=== PATIENT | female | born 2000 | race African-American/Black ===

== ENCOUNTER 2018-03-02 17:19 | Emergency (ER) | payer SELFPAY ==
[2018-03-02 19:12] LABS: Bilirubin Small (Negative); Blood, Urine Small (Negative); Clarity CLEAR (Clear); Glucose, Urine (Dipstick) Negative (Negative); Leukocyte Negative (Negative); Nitrite Negative (Negative); Protein, Urine (Dipstick) 100 mg/dL (Neg-Trace); Specific Gravity, Urine 1.029 (1.002-1.036)
[2018-03-02 19:20] LABS: Bacteria/HPF None Seen HPF (None Seen)
[2018-03-02] MEDS ORDERED: Ondansetron ODT 4 MG TAB ONE ×2 (19:24→19:45)
[2018-03-02 19:25] LABS: Hyaline Casts/LPF 0-3 HYALINE CAST LPF (0-3 Hyaline); Renal Epithelial None Seen HPF (0-3); Transitional Epithelial NONE SEEN HPF (0-3)
[2018-03-02 19:27] LABS: Pregnancy Test - Urine (BHCG) Negative (Negative); Pregu Control Background? CLEAR/WHITE (CLR/WHITE); Pregu Control Bar Appear? YES (CONTROL BAR); Specific Gravity 1.029 (1.002-1.036)
== END 2018-03-02 22:00 | disposition home or self-care (01) ==
LOC: ERS 17:19
DX: B34.9 Viral infection, unspecified (principal); R11.2 Nausea with vomiting, unspecified
CPT/HCPCS: 81003; 81015; 81025; 87081; 87430; 87804; 99283; Q0162